=== PATIENT | male | born 1985 | race African-American/Black ===

== ENCOUNTER 2018-02-01 22:06 | Emergency (ER) | payer MEDICAID ==
[~2018-02-01] VITALS: Ht 175.3 cm; Wt 96.2 kg
[~2018-02-01 22:06] MED LIST: ALBUTEROL
[2018-02-01] MEDS ORDERED: SODIUM CHLORIDE 0.9% 1,000 ML IV ONE (22:23)
[2018-02-01] MEDS ORDERED: KETOROLAC 30MG/ML VIAL IV STA (22:23)
[2018-02-01] MEDS ORDERED: CEFAZOLIN 1000MG PREMIX 50 ML IV ONE (22:30)
[2018-02-01] MEDS ORDERED: TETANUS, DIPHTHERIA, PERTUSSIS VAC/PF 0.5ML (>7YR OLD) IM ONE (22:30)
[2018-02-01 23:21] LABS: BASOPHILS % 0.5 % (0.0-2.0); EOSINOPHILS % 0.5 % (0.0-5.0); HEMATOCRIT. 46.5 % (42.0-52.0); HEMOGLOBIN. 15.7 g/dL (14.0-18.0); LYMPHOCYTES % 24.8 % (20.0-50.0); MEAN CORPUSCULAR HEMOGLOBIN 31.3 pg (28.0-32.0); MEAN CORPUSCULAR VOLUME 92.8 fL (80.0-94.0); MEAN PLATELET VOLUME 8.1 fl (7.4-10.4); MONOCYTES % 10.5 % (2.0-8.0); NEUTROPHILS % 63.7 % (40.0-76.0); PLATELET 228 x1000/uL (130-400); RED BLOOD CELL COUNT 5.01 mill/uL (4.7-6.1)
[2018-02-01 23:27] LABS: CHLORIDE 107 mEq/L (98-107)
[2018-02-01 23:30] LABS: PARTIAL THROMBOPLASTIN TIME 21.5 sec (23.4-31.0); PROTHROMBIN TIME 10.4 sec (9.1-11.1)
[2018-02-01 23:33] LABS: ETHANOL BLOOD 150 mg/dL
[2018-02-02 00:21] VITALS: BP 135/75
== END 2018-02-02 00:23 | disposition home or self-care (01) ==
LOC: ER 23:08
DX: S61.501A Unspecified open wound of right wrist, initial encounter (principal); I99.8 Other disorder of circulatory system; F12.10 Cannabis abuse, uncomplicated; W34.09XA Accidental discharge from other specified firearms, initial encounter; Y93.89 Activity, other specified; Y92.89 Other specified places as the place of occurrence of the external cause; Y99.8 Other external cause status
CPT/HCPCS: 36415; 71045; 73090; 80053; 83690; 85025; 85610; 85730; 86850; 86900; 86901; 90471; 90715; 96365; 96375; 99291; G0482; J0690; J1885; J7030; Z7610

== ENCOUNTER 2022-06-09 12:49 | Emergency (ER) | payer MEDICAID ==
[~2022-06-09] VITALS: Ht 175.3 cm; Wt 78.0 kg
[2022-06-09 13:22] VITALS: BP 107/75
== END 2022-06-09 18:06 | disposition left against medical advice (07) ==
LOC: ER 12:49
DX: Z53.21 Procedure and treatment not carried out due to patient leaving prior to being seen by health care provider (principal)